=== PATIENT | male | born 1965 | race Caucasian/White ===

== ENCOUNTER 2016-12-29 11:33 | Day surgery (SDC) | payer OTHER ==
[2016-12-29] MEDS ORDERED: MARCAINE 0.5% ONE (13:25)
[2016-12-29] MEDS ORDERED: XYLOCAINE 1 % (PLAIN) ONE (13:25)
--- NOTE | 2016-12-29 13:26 | DR.UPDATE ---
H&P Update History and Physical Update: History and Physical reviewed and patient examined. Changes noted: NO Yes with the following:Agree with H&P from Dr Pyle, will perform steroid injection of right hip
[2016-12-29] MEDS ORDERED: KENALOG INJ 40 MG IM ONE (13:38)
[2016-12-29 14:15] VITALS: BP 181/99
== END 2016-12-29 13:56 | disposition home or self-care (01) ==
LOC: SURG1 11:33
PROVIDERS: ATTEND Specialist
PROC: 3E0R3BZ Introduction of Anesthetic Agent into Spinal Canal, Percutaneous Approach (ICD-10-PCS; 2016-12-29)
PROC: 3E0R33Z Introduction of Anti-inflammatory into Spinal Canal, Percutaneous Approach (ICD-10-PCS; principal; 2016-12-29 12:45)
DX: M16.11 Unilateral primary osteoarthritis, right hip (principal)
CPT/HCPCS: 76000; S0020; J2001; J3301